=== PATIENT | female | born 1965 | race Caucasian/White ===

== ENCOUNTER 2019-09-04 19:17 | Outpatient (REF) | payer MEDICARE, SELFPAY ==
[2019-09-04 18:43] LABS: COMMENT (LAB VIEW ONLY) 105.98 mg/dL; Microalb ug/mg Crea 5.3 ug/mg Cr
== END 2019-09-04 19:37 ==
LOC: NCHCN 19:17
PROVIDERS: PCP Nurse Practitioner Family; Visit Provider Nurse Practitioner Family
DX: E11.9 Type 2 diabetes mellitus without complications (principal)
CPT/HCPCS: 82043; 82570

== ENCOUNTER 2019-10-29 16:22 | Outpatient (CLI) | payer MEDICARE, SELFPAY ==
[2019-10-29 16:56] LABS: Abs Immature Grans 0.01 k/cumm (0.0-0.09); Absolute Basophil Count 0.03 k/cumm (0.0-0.2); Absolute Eosinophil Count 0.03 k/cumm (0.0-0.7); Absolute Lymphocyte Count 1.18 k/cumm (1.2-3.4); Absolute Monocyte Count 0.78 k/cumm (0.11-0.7); Absolute Neutrophil Count 6.66 k/cumm (1.2-6.7); Basophils % 0.3; Eosinophils % 0.3; HCT 39.3 % (36.0-46.0); Immature Grans % 0.1 %; Lymphocytes % 13.6; Mean Corp. HGB Concentration 33.1 g/dL (32.0-36.0); Mean Corpuscular Hemoglobin 31.1 pg (27.0-33.0); Mean Platelet Volume 10.8 fL (8.0-11.0); Neutrophils % 76.7; Platelet Count 188 x1000/uL (130-400); RBC 4.18 m/cumm (4.00-5.20); RBC Distribution Width 12.3 % (11.7-14.6); White Blood Cell Count 8.69 k/cumm (4.4-10.8)
[2019-10-29 17:05] LABS: Anion Gap 8.3 mmol/L (3-11); BUN 11 mg/dL (7-18); CO2 26.7 mmol/L (21.0-32.0); CREATININE 0.71 mg/dL (0.55-1.02); Calcium 9.2 mg/dL (8.5-10.1); Chloride 104 mmol/L (98-107); Glucose 144 mg/dL (74-106); Potassium 4.5 mmol/L (3.5-5.1); Sodium 139 mmol/L (136-145)
== END 2019-10-29 16:42 ==
PROVIDERS: PCP Nurse Practitioner Family; Visit Provider Nurse Practitioner Family
DX: R10.9 Unspecified abdominal pain (principal); K57.32 Diverticulitis of large intestine without perforation or abscess without bleeding; N20.0 Calculus of kidney
CPT/HCPCS: 80048; 74177; 85025; J3490; Q9967

== ENCOUNTER 2019-10-29 16:43 | Outpatient (CLI) | payer MEDICARE, SELFPAY ==
[2019-10-29] MEDS: Omnipaque 350 MG/ML 100 ML BTL IJ (17:42)
[2019-10-29] MEDS: Omnipaque 350 MG/ML 50 ML BTL PO (17:43)
--- NOTE | 2019-10-29 17:45 | DI.CT_ITS ---
EXAM: CT ABDOMEN PELVIS W CLINICAL HISTORY: ABDOMINAL PAIN R10.9 TECHNIQUE: CT examination of the abdomen and pelvis was performed with a bolus infusion of 100 cc of Omnipaque 350 and ingestion of dilute barium. COMPARISON: No exams were available for comparison FINDINGS: Images obtained through the lung bases are unremarkable. Liver, spleen and pancreas appear normal. Gallbladder and bile ducts are CT normal. Adrenals and kidneys appear normal except for a tiny nono bstructing left renal calculus. No urinary tract obstruction. Abdominal aorta is of normal diameter and no major vascular abnormality is seen. Presumed prior ventral hernia surgery, no evidence of si gnificant hernia at this time. No abdominal or pelvic adenopathy. Appendix appears normal. No evidence of bowel obstruction. There is an area of wall thickening invo lving the distal descending to the distal sigmoid colon with marked pericolonic fat edema. Findings are consistent with acute diverticulitis. No abscess or perforation. Trace free fluid in the pelvis . IMPRESSION: Findings consistent with acute sigmoid diverticulitis. No evidence of perforation, obstruction or ab scess.
--- NOTE | 2019-10-29 17:56 | DI.VRAD_ITS ---
PROCEDURE INFORMATION: Exam: CT Abdomen And Pelvis With Contrast Exam date and time: 10/29/2019 4:27 PM Age: 54 years old Clinical indication: Abdominal pain; Acute; Patient HX: Lower abd pain 2 weeks, worsening over last two days TECHNIQUE: Imaging protocol: Computed tomography of the abdomen and pelvis with intravenous contrast. COMPARISON: No relevant prior studies available. FINDINGS: Lungs: Visualized lung bases are unremarkable. Liver: The liver is normal. Gallbladder and bile ducts: The gallbladder is normal. Pancreas: Small punctate calcification in the pancreatic head may represent sequela of prior pancreatitis. Pancreas is otherwise unremarkable. Spleen: The spleen is normal. Splenule. Adrenals: The adrenal glands are normal. Kidneys and ureters: The kidneys are normal. Stomach and bowel: Sigmoid diverticulosis with mural thickening and mild surrounding fat stranding. Appendix: A normal appendix is identified. Intraperitoneal space: Trace free fluid in the pelvis. Vasculature: The aorta is normal. The portal and splenic veins are patent. Lymph nodes: Unremarkable. No enlarged lymph nodes. Bladder: The bladder is normal. Reproductive: There has been a hysterectomy. Bones/joints: Unremarkable. No acute fracture. Soft tissues: Unremarkable. IMPRESSION: Mild acute sigmoid diverticulitis. No organized fluid collection or free air. Dictated and Authenticated by: Kishor Moreno MD. Ordering:JENNY Monroe MD
== END 2019-10-29 17:03 ==
PROVIDERS: PCP Nurse Practitioner Family; Visit Provider Nurse Practitioner Family
DX: R10.9 Unspecified abdominal pain (principal); K57.32 Diverticulitis of large intestine without perforation or abscess without bleeding; N20.0 Calculus of kidney
CPT/HCPCS: 74177; J3490; Q9967

== ENCOUNTER 2019-11-11 21:47 | Outpatient (REF) | payer MEDICARE, SELFPAY ==
[2019-11-11 20:13] LABS: TSH (W/Ref FT4) 2.14 uIU/mL (0.36-3.74)
== END 2019-11-11 22:07 ==
LOC: NCHCN 21:47
PROVIDERS: PCP Nurse Practitioner Family; Visit Provider Nurse Practitioner Family
DX: E03.9 Hypothyroidism, unspecified (principal)
CPT/HCPCS: 84443

== ENCOUNTER 2021-08-26 14:43 | Outpatient (REF) | payer MEDICARE, SELFPAY ==
[2021-08-26 21:09] LABS: ALT 37 U/L (14-59); AST 24 U/L (15-37); Albumin 3.9 g/dL (3.4-5.0); Alkaline Phosphatase 123 U/L (46-116); Anion Gap 7.4 mmol/L (3-11); BUN 8 mg/dL (7-18); Bilirubin, Total 0.5 mg/dL (0.2-1.0); CO2 28.6 mmol/L (21.0-32.0); CREATININE 0.8 mg/dL (0.55-1.02); Calcium 9.2 mg/dL (8.5-10.1); Chloride 108 mmol/L (98-107); Glucose 189 mg/dL (74-106); Magnesium 1.9 mg/dL (1.8-2.4); Potassium 4.5 mmol/L (3.5-5.1); Sodium 144 mmol/L (136-145); TSH (W/Ref FT4) 20.74 uIU/mL (0.36-3.74); Total Protein 7.2 g/dL (6.4-8.2)
== END 2021-08-26 14:44 | disposition home or self-care (01) ==
LOC: NCHCN 14:43
PROVIDERS: PCP Nurse Practitioner Family; Visit Provider Physician Assistant Medical
DX: R00.1 Bradycardia, unspecified (principal)
CPT/HCPCS: 80053; 83735; 84439; 84443

== ENCOUNTER 2021-09-01 02:55 | Outpatient (RCR) | payer MEDICARE, SELFPAY ==
--- NOTE | 2021-09-01 13:45 | HOLTER_ITS ---
APPROVED REPORT Conclusion This was a 48-hour Holter monitor ordered for bradycardia Rhythm throughout was sinus with an average heart rate of 77. Minimum was 54, maximum 128 A total of 4 isolated PVCs were seen. There were 6 isolated atrial premature beats There was no atrial fibrillation, no high-grade AV block, no pauses greater than 3 seconds Patient symptoms corresponded to sinus rhythm in the 80s
== END 2021-09-20 23:59 | disposition home or self-care (01) ==
LOC: RT 02:55
PROVIDERS: PCP Nurse Practitioner Family; Visit Provider Physician Assistant Medical
DX: R00.1 Bradycardia, unspecified (principal); I49.3 Ventricular premature depolarization; I49.1 Atrial premature depolarization
CPT/HCPCS: 93227; 93225; 93226

== ENCOUNTER 2021-10-28 14:56 | Outpatient (REF) | payer MEDICARE, SELFPAY ==
[2021-10-28 14:36] LABS: HCT 38.8 % (36.0-46.0); MCH 32.4 pg (27.0-33.0); MCHC 33.5 % (32.0-36.0); MCV 96.8 fL (80-95); MPV 10.8 fL (8.0-11.0); Platelet Count 197 10^3/uL (130-400); RBC 4.01 10^6/uL (3.93-5.22); RDW 11.6 % (11.7-14.6); RDW-SD 41.3 fL
[2021-10-28 15:09] LABS: Hemoglobin A1C 8.2 % (<5.7)
[2021-10-28 15:14] LABS: Calculated LDL 112 mg/dL (<100); Cholesterol 186 mg/dL (<200); HDL Cholesterol 56 mg/dL (40-60); TSH (W/Ref FT4) 10.69 uIU/mL (0.36-3.74); Triglyceride 93 mg/dL (<150)
[2021-10-28 15:32] LABS: FREE T4 1.21 ng/dL (0.76-1.46)
[2021-10-31 10:22] LABS: HIV-1/2 Ag & Ab Screen Negative (Negative)
== END 2021-10-28 14:57 | disposition home or self-care (01) ==
LOC: NCHCN 14:56
PROVIDERS: PCP Nurse Practitioner Family; Visit Provider Nurse Practitioner Family
DX: E11.9 Type 2 diabetes mellitus without complications (principal); E03.9 Hypothyroidism, unspecified; R00.1 Bradycardia, unspecified; Z11.4 Encounter for screening for human immunodeficiency virus [HIV]
CPT/HCPCS: 80061; 85027; 87389; 83036; 84439; 84443

== ENCOUNTER 2022-01-11 01:05 | Outpatient (CLI) | payer MEDICARE, SELFPAY ==
--- NOTE | 2022-01-11 11:30 | DI.MAMMO_ITS ---
Exam(s) MAMMO SCREENING EXAM: MAMMO SCREENING CLINICAL HISTORY: SCREENING, Z12.39. TECHNIQUE: Bilateral full field digital CC and MLO mammographic images were obtained with 3D tomosyn thesis and utilizing computer aided detection (CAD). COMPARISON: None. This is a baseline mammogram on this 56-year-old patient. FINDINGS: Fibroglandular tissue is predominately fatty. No CAD designations. There are no significant spiculated masses nor malignant appearing microcalcification groups. There is no significant architectural distortion nor skin thickening-retraction. IMPRESSION: No radiographic evidence of malignancy. BI-RADS Category 1 - Negative Breast Density - Category A - Almost entirely fatty Breast density Category C or D implies that the patient has dense breast tissue. Dense breast tissue can make it harder to find cancer on a mammogram. Dense breast tissue is also associated with an incr eased risk of breast cancer. This information about the result of the mammogram report was provided to the patient to raise their awareness. Use this report when you speak with the patient about their risks for breast cancer, which includes their family history. At that time, you may recommend additional screening tests (Ultrasoun d or MRI) as these tests may add significant information. A negative radiographic report should not delay biopsy if a dominant or clinically suspicious mass is present. Up to ten percent of cancers are not identified on mammography. A negative report may reinforce clinical impression. Adenosis and dense breasts may obscure an underlying neoplasm. False positive reports average 6 to 10%. Patient will receive a letter notifying them of these results.
== END 2022-01-11 01:25 ==
PROVIDERS: PCP Nurse Practitioner Family; Visit Provider Nurse Practitioner Family
DX: Z12.31 Encounter for screening mammogram for malignant neoplasm of breast (principal)
CPT/HCPCS: 77063; 77067

== ENCOUNTER 2022-02-06 13:49 | Outpatient (REF) | payer MEDICARE, SELFPAY ==
[2022-02-06 17:20] LABS: TSH (W/Ref FT4) 3.71 uIU/mL (0.36-3.74)
== END 2022-02-06 13:50 | disposition home or self-care (01) ==
LOC: NCHCN 13:49
PROVIDERS: PCP Nurse Practitioner Family; Visit Provider Nurse Practitioner Family
DX: E03.9 Hypothyroidism, unspecified (principal)
CPT/HCPCS: 84443

== ENCOUNTER 2022-09-28 14:44 | Outpatient (REF) | payer MEDICARE, SELFPAY ==
[2022-09-28 16:01] LABS: TSH (W/Ref FT4) 7.45 uIU/mL (0.36-3.74)
[2022-09-28 16:17] LABS: FREE T4 1.17 ng/dL (0.76-1.46)
== END 2022-09-28 14:45 | disposition home or self-care (01) ==
LOC: NCHCN 14:44
PROVIDERS: PCP Nurse Practitioner Family; Visit Provider Nurse Practitioner Family
DX: E03.9 Hypothyroidism, unspecified (principal)
CPT/HCPCS: 84439; 84443

== ENCOUNTER 2022-12-28 12:38 | Outpatient (REF) | payer MEDICARE, SELFPAY ==
[2022-12-28 16:25] LABS: HCT 39.4 % (36.0-46.0); HGB 13.5 g/dL (11.2-15.7); MCH 31.8 pg (27.0-33.0); MCHC 34.3 % (32.0-36.0); MCV 93 fL (80-95); MPV 10.7 fL (8.0-11.0); Platelet Count 181 10^3/uL (130-400); RBC 4.25 10^6/uL (3.93-5.22); RDW 11.9 % (11.7-14.6); RDW-SD 40.8 fL
[2022-12-28 16:37] LABS: ALT 29 U/L (14-59); AST 17 U/L (15-37); Albumin 3.5 g/dL (3.4-5.0); Alkaline Phosphatase 144 U/L (46-116); Anion Gap 7.8 mmol/L (3-11); BUN 13 mg/dL (7-18); Bilirubin, Total 0.4 mg/dL (0.2-1.0); CO2 27.2 mmol/L (21.0-32.0); CREATININE 0.8 mg/dL (0.55-1.02); Chloride 103 mmol/L (98-107); Estimated GFR 86.42 (mL/min/1.73m2); Glucose 333 mg/dL (74-106); Potassium 3.9 mmol/L (3.5-5.1); Sodium 138 mmol/L (136-145); TSH (W/Ref FT4) 7.38 uIU/mL (0.36-3.74); Total Protein 7.3 g/dL (6.4-8.2)
[2022-12-28 17:05] LABS: FREE T4 0.95 ng/dL (0.76-1.46)
== END 2022-12-28 12:39 | disposition home or self-care (01) ==
LOC: NCHCN 12:38
PROVIDERS: PCP Nurse Practitioner Family; Visit Provider Nurse Practitioner Family
DX: E11.9 Type 2 diabetes mellitus without complications (principal); E03.9 Hypothyroidism, unspecified
CPT/HCPCS: 80053; 85027; 84439; 84443

== ENCOUNTER 2023-04-05 12:05 | Outpatient (REF) | payer MEDICARE, SELFPAY ==
[2023-04-05 19:30] LABS: COMMENT (LAB VIEW ONLY) 45.24 mg/dL
== END 2023-04-05 12:06 | disposition home or self-care (01) ==
LOC: NCHCN 12:05
PROVIDERS: PCP Nurse Practitioner Family; Visit Provider Nurse Practitioner Family
DX: E11.9 Type 2 diabetes mellitus without complications (principal)
CPT/HCPCS: 82043; 82570

== ENCOUNTER 2023-05-17 19:09 | Outpatient (CLI) | payer MEDICARE, SELFPAY ==
[2023-05-17 16:09] LABS: TSH (W/Ref FT4) 0.29 uIU/mL (0.36-3.74)
[2023-05-17 16:27] LABS: FREE T4 1.61 ng/dL (0.76-1.46)
== END 2023-05-17 19:10 | disposition home or self-care (01) ==
LOC: LBO 19:09
PROVIDERS: PCP Nurse Practitioner Family; Visit Provider Family Medicine
DX: E11.9 Type 2 diabetes mellitus without complications (principal)
CPT/HCPCS: 36415; 84439; 84443

== ENCOUNTER 2023-09-07 19:27 | Outpatient (REF) | payer MEDICARE, SELFPAY ==
[2023-09-07 19:30] LABS: Hemoglobin A1C 9.8 % (<5.7)
[2023-09-07 19:32] LABS: ALT 29 U/L (14-59); AST 20 U/L (15-37); Albumin 3.5 g/dL (3.4-5.0); Alkaline Phosphatase 134 U/L (46-116); BUN 9 mg/dL (7-18); Bilirubin, Total 0.7 mg/dL (0.2-1.0); CREATININE 0.8 mg/dL (0.55-1.02); Calcium 9.4 mg/dL (8.5-10.1); Calculated LDL 100 mg/dL (<100); Chloride 104 mmol/L (98-107); Cholesterol 183 mg/dL (<200); Estimated GFR 85.89 (mL/min/1.73m2); Glucose 261 mg/dL (74-106); HDL Cholesterol 59 mg/dL (40-60); Magnesium 1.7 mg/dL (1.8-2.4); Potassium 3.9 mmol/L (3.5-5.1); Sodium 137 mmol/L (136-145); TSH 0.09 uIU/mL (0.36-3.74); Total Protein 7.2 g/dL (6.4-8.2); Triglyceride 121 mg/dL (<150)
== END 2023-09-07 19:28 | disposition home or self-care (01) ==
LOC: NCHCN 19:27
PROVIDERS: PCP Nurse Practitioner Family; Visit Provider Nurse Practitioner Family
DX: E03.9 Hypothyroidism, unspecified (principal); E11.9 Type 2 diabetes mellitus without complications; R25.2 Cramp and spasm
CPT/HCPCS: 80053; 80061; 83036; 83735; 84443

== ENCOUNTER 2024-03-07 14:15 | Outpatient (REF) | payer MEDICARE, SELFPAY ==
[2024-03-07 18:44] LABS: HCT 40.7 % (36.0-46.0); HGB 14.2 g/dL (11.2-15.7); MCH 32.2 pg (27.0-33.0); MCHC 34.9 % (32.0-36.0); MCV 92 fL (80-95); MPV 11.2 fL (8.0-11.0); Platelet Count 219 10^3/uL (130-400); RBC 4.41 10^6/uL (3.93-5.22); RDW 11.9 % (11.7-14.6); WBC 4.61 10^3/uL (4.4-10.8)
[2024-03-07 19:07] LABS: ALT 30 U/L (14-59); AST 22 U/L (15-37); Albumin 3.5 g/dL (3.4-5.0); Alkaline Phosphatase 142 U/L (46-116); Anion Gap 10.7 mmol/L (3-11); BUN 9 mg/dL (7-18); Bilirubin, Total 0.7 mg/dL (0.2-1.0); CO2 26.3 mmol/L (21.0-32.0); CREATININE 0.8 mg/dL (0.55-1.02); Chloride 106 mmol/L (98-107); Estimated GFR 85.35 (mL/min/1.73m2); Glucose 217 mg/dL (74-106); Hemoglobin A1C 10.4 % (<5.7); Potassium 4.4 mmol/L (3.5-5.1); Sodium 143 mmol/L (136-145); TSH (W/Ref FT4) 0.07 uIU/mL (0.36-3.74); Total Protein 7.1 g/dL (6.4-8.2)
[2024-03-07 19:21] LABS: Vitamin D 25 Total 17.5 ng/mL (30-100)
[2024-03-07 19:34] LABS: FREE T4 1.68 ng/dL (0.76-1.46)
== END 2024-03-07 14:16 | disposition home or self-care (01) ==
LOC: NCHCN 14:15
PROVIDERS: Visit Provider Nurse Practitioner Family
DX: G47.419 Narcolepsy without cataplexy (principal); E03.9 Hypothyroidism, unspecified; E55.9 Vitamin D deficiency, unspecified; E11.9 Type 2 diabetes mellitus without complications
CPT/HCPCS: 80053; 82306; 85027; 83036; 84439; 84443

== ENCOUNTER 2024-10-10 13:40 | Outpatient (REF) | payer MEDICARE, SELFPAY ==
--- OUTSIDE RECORDS SUMMARY | 2024-10-10 13:46 | XMS_ITS | Encounter Summary ---
Author Organization [facility] Address [address] [place] [address] Care Team Providers Care Stock Clerk Self Service Store Name Role Phone Miranda Delcid Primary Care Provider [phone] Encounter Details Date Type Department Care Team (Late st Contact Info) Description 09/01/2016 Results Only [facility] [phone] Beatriz Meeks, DO [address] [place] [address] Social History Tobacco Use Types Packs/Day Years Used Date Smoking Tobacco: Never Assessed Comments Unknown Sex and Gender Information Value Date Recorded Sex Assigned at Not on file Legal Sex Female 18:06 EST Gender Identity Not on file Sexual Orientation Not on file documented as of this encounter Plan of Treatment Not on file documented as of this encounter Procedures Procedure Name Priority Date/Time Associated Diagnosis Comments SURGICAL PATHOLOGY Routine 09/01/2016 12 :02 EST documented in this encounter Results * SURGICAL PATHOLOGY (09/01/2016 12:02 EST) Pathology Report: SURGICAL PATHOLOGY REPORT Reports generated via electronic interface contain original data; however they are lacking the format of the original report. Caution should be taken when reading/interpretin g unformatted reports. Name: ? GINO YANG ? Accession #: ? [id number] ? : ? 1965 (Age: 51) ??F ? Collect Date: ? 09/01/2016 ? Location: ? [facility] ? Receive Date: ? 09/04/2016 ? Provider: BEATRIZ MEEKS DO Copy to: ? Final Pathologic Diagnosis: A. SMALL BOWEL, DUODENUM, BIOPSY: - ??Peptic duodenitis with reactive epithelial change. - ??Negative for dysplasia. B. STOMACH, ANTRUM, BIOPSY: - ??Transitional and oxyntic mucosa with mild reactive gastropathy. - ??Negative for Helicobacter pylori on H&E. C. GASTROESOPHAGEAL JUNCTION, BIOPSY: - ??Ulcerated squamous mucosa with severe reflux esophagitis and up to 12 eosinophils per high power field. - ??Bizarre stromal cells involving granulation tissue. SEE COMMENT. - ??Cardia type mucosa with foveolar hyperplasia; negative for intestinal metaplasia or dysplasia. - ??See comment. ?? Comment: Nature of bizarre cells was further evaluated by immunostaining to exclude a possibility of malignancy. These cells were evaluated with S-100 protein DAB (4C4.9, [place]), LCA (PD7/26+2B11, [employer]), Keratin AE1-AE3 (AE1-AE3, [employer]), CD138 (M115, [employer]), CD30 (Josafat-H2, [place]), DANIEL (GP1.4, [employer]) (C2): Negative for carcinoma and negative for melanoma. True nature of reactive-appearing bizarre cells is difficult to delineate but most compatible with plasma cells. Highly bizarre cells have been occasionally described in context of inflammatory conditions or polyps in GI tract. Patient does not have history of radiation, per discussion with Dr. Laird's office at 11:00 am on 09/11/2016. Considering direct granulation tissue milieu and immunostaining profile, bizarre cells are considered reactive/ reparative inflammatory and stromal cells, unless endoscopically/ clinically another suspicion remains. Please correlate. ? Cells are also negative for viral markers CMV (DDG9/CCH2, [place]), Herpes I (polyclonal, [employer]) and SV40 (Qjs135, [employer] ([employer])) (C2): negative. ?? NOTE: ??One or more of the reagents used in immunoperoxidase testing in this case may not have been cleared or approved by the U.S. Food and Drug Administration (FDA). ??The FDA has determined that such clearance or approval is not necessary. ??These tests are used for clinical purposes. ??They should not be regarded as investigational or for research. ??These reagents' performance characteristics have been determined by [facility]. ??The positive and negative controls worked appropriately. This laboratory is certified under the Clinical Laboratory Improvement Amendments of 1988 (CLIA-88) as qualified to perform high complexity clinical laboratory testing. ?? Dr. Tank Howe 09/05/2016 12:13 PM Document reviewed and electronically signed by: SHAYY CAMPBELL MD Report ??Date: 09/11/2016 12:21 By the signature above, the attending physician certifies that he/she has personally conducted a gross and/or microscopic examination of the described specimens and rendered or confirmed the above diagnosis. Specimen(s) Received: A. ??Duodenum bx B. ??Gastric antrum bx C. ??GE junction bx Clinical History: GERD/screening; clinical diagnosis code: ??K21.9, Z12.11 Gross Description: A. ?Received in formalin labelled with proper patient identification (initials M, S) and 1. duodenum bx is a single yellow-brown granular tissue fragment (0.4 x 0.3 x 0.2 cm). Submitted intact in A1. B. ?Received in formalin labelled with proper patient identification (initials M, S) and 2. gastric antrum bx are three nava-yellow mottled tissues (0.2 x 0.2 x less than 0.1 cm, 0.3 x 0.2 x 0.1 cm and 0.4 x 0.3 x 0.3 cm). Entirely submitted in B1. C. ?Received in formalin labelled with proper patient identification (initials M, S) and 3. GE junction bx are eight nava-yellow to yellow-brown tissues (0.2 x 0.1 x 0.1 cm to 0.6 x 0.5 x 0.1 cm). Entirely submitted in C1-C3. Yanet Gretchen 09/04/2016 2:52 PM End of Report [facility] 09/01/2016 12:0 2 EST 09/04/2016 12:02 EST us Beatriz Meeks DO PATHOLOGY ORDERABLES Final Res ult [facility] [address] [place] [address] documented in this encounter Visit Diagnoses Not on filedocumented in this encounter Care Teams Stock Clerk Self Service Store Relationship Specialty Start Date End Date Miranda Delcid PA [address] [place] [id number] PCP - General 04/01/15 documented as of this encounter
--- OUTSIDE RECORDS SUMMARY | 2024-10-10 13:46 | XMS_ITS | Encounter Summary ---
Author Organization [facility] Address [address] [place] [address] Care Team Providers Care Grain Elevator Man Name Role Phone Miranda Delcid Primary Care Provider [phone] Encounter Details Date Type Department Care Team (Latest Contact Info) Description 09/01/2016 13:14 EST - 09/01/2016 23:59 EST Hospital Encounter [address] [address] Unknown, Provider, MD Discharge Disposition: Home or Self Care Social History Tobacco Use Types Packs/Day Years Used Date Smoking Tobacco: Never Assessed Comments Unknown Sex and Gender Information Value Date Recorded Sex Assigned at Not on file Legal Sex Female 18:06 EST Gender Identity Not on file Sexual Orientation Not on file documented as of this encounter Discharge Disposition Disposition Code Departure Means Destination Home or Self Prison documented in this encounter Plan of Treatment Not on file documented as of this encounter Visit Diagnoses Not on filedocumented in this encounter Care Teams Grain Elevator Man Relationship Specialty Start Date End Date Miranda Delcid PA [address] [place] [id number] PCP - General 04/01/15 documented as of this encounter
--- OUTSIDE RECORDS SUMMARY | 2024-10-10 13:46 | XMS_ITS | Encounter Summary ---
Author Organization [facility] Address [address] [place] [address] Care Team Providers Care Pipe Threading Machine Operator Name Role Phone Unavailable Primary Care Provider Unavailabl e Encounter Details Date Type Department Care Team (Late st Contact Info) Description 03/29/2015 Results Only [facility]- [facility] [phone] Sage Soto MD [address] [place] [address] [address] [place], [place] [id number] Social History Tobacco Use Types Packs/Day Years [...] Date/Time Associated Diagnosis Comments SURGICAL PATHOLOGY Routine 03/29/2015 8:36 EDT documented in this encounter Results * SURGICAL PATHOLOGY (03/29/2015 8:36 EDT) Pathology Report: SURGICAL PATHOLOGY REPORT Reports generated via electronic interface contain original data; however they are lacking the format of the original report. Caution should be taken when reading/interpret ing unformatted reports. Name: ? GINO YANG ? Accession #: ? [id number] ? : ? 1965 (Age: 50) ??F ? Collect Date: ? 03/29/2015 ? Location: ? [facility] ? Receive Date: ? 03/30/2015 ? Provider: SAGE SOTO MD Copy to: COLLETTE JOSE MD ? Final Pathologic Diagnosis: GASTROESOPHAGEAL JUNCTION, BIOPSY: - ??Squamocolumnar junctional mucosa with histologic features of active reflux esophagitis. - ?? Negative for intestinal metaplasia; Negative for dysplasia. ?? Document reviewed and electronically signed by: SOREN WOLFE MD Report ??Date: 04/01/2015 10:50 By the signature above, the attending physician certifies that he/she has personally conducted a gross and/or microscopic examination of the described specimens and rendered or confirmed the above diagnosis. Specimen(s) Received: GE junction Clinical History: Reflux Gross Description: ? Received in formalin labelled with proper patient identification (initials M, S) and GE junction are two pink-nava tissues (0.2 x 0.2 x 0.2 cm and 0.4 x 0.2 x 0.2 cm). Entirely submitted in 1. Sandy Ponce 03/30/2015 01:19 PM End of Report [facility] 03/29/2015 8:36 EDT 03/30/2015 8:36 EDT us Sage Soto MD PATHOLOGY ORDERABLES Fin al Result [facility] [address] [place] [address] documented in this encounter Visit Diagnoses Not on filedocumented in this encounter
--- OUTSIDE RECORDS SUMMARY | 2024-10-10 13:46 | XMS_ITS | Referral Summary ---
Author Organization [facility] Address [address] [place] [address] Care Team Providers Care Energy Administrator Name Role Phone Miranda Delcid Primary Care Provider [phone] Social History Tobacco Use Types Packs/Day Years Used Date Smoking Tobacco: Never Assessed Comments Unknown Sex and Gender Information Value Date Recorded Sex Assigned at Not on file Legal Sex Female 18:06 EST Gender Identity Not on file Sexual Orientation Not on file Plan of Treatment Not on file Care Teams Energy Administrator Relationship Specialty Start Date End Date Miranda Delcid PA [address] [place] [id number] PCP - General 04/01/15
--- OUTSIDE RECORDS SUMMARY | 2024-10-10 13:46 | XMS_ITS | Data Portability ---
Author Organization ID - [facility] Address [address] [place] [address] Care Team Providers Care Hockey Scout Name Role Phone [facility] Sleep Medicine Assessment No assessment recorded. Plan of Treatment Reminders Order Date Submit Date Provider Last Modified By Organization Details Last Modified Time Details Appointments Follow Up 30 2023 10:30A M ORIANA GARZA Not available Not available Not available Follow Up 30 2024 10:30A M ORIANA GARZA Not available Not available Not available Annual Wellness Exam 40 2024 11:00A M ORIANA GARZA Not available Not available Not available Lab magnesium , serum or plasma [address] [facility] (Registration ), [address] [place] [address] [place], [address], 03/19/2024 17:13:32 HbA1c (hemoglob in A1c), blood [address] [facility] (Registration ), [address] [place] [address] [place], [address], 03/19/2024 17:13:32 CMP, serum or plasma 2022 023 [facility] (Registration ), [address] [place] [address] [place], [address], 10/26/2023 09:54:32 lipid panel, serum 2022 023 [facility] (Registration ), [address] [place] [address] Dr, [place], [address], 10/26/2023 09:54:32 TSH, serum or plasma [address] [facility] (Registration ), [address] [place] [address] [place], [address], 03/19/2024 17:13:32 rapid strep group A, throat 2023 024 [email or web address] [facility], [address] [place] [address], [address], [place], [address], 01/23/2024 17:57:50 influenza virus A + B + SARS-CoV- 2 (COVID19) Ag panel, rapid IA, upper respirato ry specimen 2023 024 [email or web address] [facility], [address] [place] [address], [address], [place], [address], 01/23/2024 17:57:51 vitamin D, 25-hydrox y, total, serum - 1 tiger, 1 LAV obtained without issue from (R) 2023 024 [facility] (Registration ), [address] [place] [address] [place], [address], 03/07/2024 19:24:28 HbA1c (hemoglob in A1c), blood - 1 tiger, 1 LAV obtained without issue from (R) AC [address] [facility] (Registration ), [address] [place] [address] [place], [address], 03/14/2024 15:49:48 CMP, serum or plasma - 1 tiger, 1 LAV obtained without issue from (R) AC 2023 024 [facility] (Registration ), [address] [place] [address] [place], [address], 03/07/2024 19:12:32 CBC - 1 tiger, 1 LAV obtained without issue from (R) 2023 [facility] (Registration ), [address] [place] [address] , [place], [address], 03/07/2024 18:51:28 TSH, serum, reflex free T4 - 1 tiger, 1 LAV obtained without issue from (R) [address] [facility] (Registration ), [address] [place] [address] [place], [address], 03/14/2024 15:49:49 Referral None recorded. Procedures None recorded. Surgeries None recorded. Imaging XR, knee, 3 view - Bilateral knee pain, please perform xray to left and right side. 2023 [facility], [address] , [place], [address], 05/19/2024 10:27:32 Medication Orders amoxicill in 500 mg capsule [address] [facility] [address] [facility], [address] [place] [address], [address], 03/07/2024 10:06:16 Victoza 2-Kevin 0.6 mg/0.1 mL (18 mg/3 mL) subcutane ous pen injector 2023 [facility], [address] [place] [address], [address], 09/05/2024 11:58:47 levothyro xine 175 mcg tablet 2023 [facility], [address] [place] [address], [address], 03/12/2024 15:49:02 Patient TargetsNo targets recorded. Patient Instructions Encounter Date Encounter Id Patient Instructions Last Modified By Organization Details Last Modified Time 09/07/2023 [id number] Nice to meet you today! You are now established on my panel Follow up in 3 months, sooner if concerns labs for management of hypothyroidism and type II diabetes today We will call you to discuss plan based on labs [email or web address] Not available 09/07/2023 14:38:42 Reason for Referral None Reported. Results Created Date Observation Date Name Description Value Unit Range Abnormal Flag Note LastModifiedBy Organization Detail LastModifiedTime 09/07/2009/07/2023 TSH, serum or plasm a TSH, serum or plasma 0.09 micro intl_ units /mL 0.36-3 .74 low Not Available Not Available 05/23/2024 01:40:40 09/07/2009/07/2023 magne sium, blood magnesium, qn, serum or plasma 1.7 mg/dL 1.8-2. 4 low Not Available Not Available 05/23/2024 01:40:40 09/07/2009/07/2023 lipid panel , blood cholesterol, total, serum 183 mg/dL <200 Not Available Not Available 05/23/2024 01:40:40 09/07/2009/07/2023 lipid panel , blood HDL 59 mg/dL 40-60 Not Available Not Availa ble 05/23/2024 01:40:40 09/07/2009/07/2023 lipid panel , blood LDL 100 mg/dL <100 Not Available Not Availa ble 05/23/2024 01:40:40 09/07/2009/07/2023 lipid panel , blood triglyceride , 12H fasting, qn, serum or plasma 121 mg/dL <150 Not Available Not Available 11/2023 01:40:40 09/07/2009/07/2023 HbA1c (hemo globi n A1c), blood HbA1C (hemoglobin A1C), blood 9.8 % <5.7 high Not Available Not Available 05/23/2024 01:40:39 09/07/2009/07/2023 gluco se, QN [mass /volu me], blood glucose ser 261 mg/dL 74-106 high Not Available [facility] [address], [place], [address], 05/23/2024 01:40:39 09/07/2009/07/2023 CMP, serum or plasm a albumin, serum or plasma 3.5 g/dL 3.4-5. 0 normal Not Available Not Available 05/23/2024 01:40:37 09/07/2009/07/2023 CMP, serum or plasm a aniongap 7.0 mmol/ L 3-11 normal Not Available Not Available 05/23/20 01:40:37 09/07/2009/07/2023 CMP, serum or plasm a bilirubin, total, serum or plasma 0.7 mg/dL 0.2-1. 0 normal Not Available Not Available 05/23/2024 01:40:37 09/07/2009/07/2023 CMP, serum or plasm a BUN (blood urea nitrogen), serum or plasma 9 mg/dL 7-18 normal Not Available Not Available 11/2023 01:40:37 09/07/2009/07/2023 CMP, serum or plasm a calcium, qn, serum or plasma 9.4 mg/dL 8.5-10 .1 normal Not Available Not Available 05/23/2024 01:40:37 09/07/2009/07/2023 CMP, serum or plasm a chloride, serum or plasma 104 mmol/ L 98-107 normal Not Available Not Available 05/23/20 01:40:37 09/07/2009/07/2023 CMP, serum or plasm a CO2, (carbon dioxide), total, serum or plasma 26.0 mmol/ L 21.0-3 2.0 normal Not Available Not Available 05/23/2024 01:40:37 09/07/2009/07/2023 CMP, serum or plasm a creatinine, serum or plasma 0.8 mg/dL 0.55-1 .02 normal Not Available Not Available 05/23/2024 01:40:37 09/07/2009/07/2023 CMP, serum or plasm a eGFR 85.89 (?) mL/mi n/1.7 3m2 mL/min /1.73m 2 Not Available Not Available 05/23/2024 01:40:37 09/07/20 23 09/07/2023 CMP, serum or plasm a potassium, serum or plasma 3.9 mmol/ L 3.5-5. 1 normal Not Available Not Available 05/23/2024 01:40:37 09/07/2009/07/2023 CMP, serum or plasm a protein, total, serum 7.2 g/dL 6.4-8. 2 normal Not Available Not Available 05/23/2024 01:40:37 09/07/2009/07/2023 CMP, serum or plasm a AST/SGOT (aspartate aminotransfe rase), serum or plasma 20 units /L 15-37 normal Not Available Not Available 05/23/20 01:40:37 09/07/2009/07/2023 CMP, serum or plasm a ALT (alanine aminotransfe rase), serum or plasma 29 units /L 14-59 normal Not Available Not Available 05/23/20 01:40:37 09/07/2009/07/2023 CMP, serum or plasm a sodium, serum or plasma 137 mmol/ L 136-14 5 normal Not Available Not Available 05/23/2024 01:40:37 01/23/20 24 01/23/2024 influ ricky virus A + B + SARS- CoV-2 (COVI D19) Ag panel , rapid IA, upper respi rator y speci men Influenza A negati ve Not Available [address] [place] [address], [address], 01/23/2024 17:43:30 01/23/20 24 01/23/2024 influ ricky virus A + B + SARS- CoV-2 (COVI D19) Ag panel , rapid IA, upper respi rator y speci men Influenza B negati ve Not Available [address] [place] [address], [address], 01/23/2024 17:43:30 01/23/20 24 01/23/2024 influ ricky virus A + B + SARS- CoV-2 (COVI D19) Ag panel , rapid IA, upper respi rator y speci men SARS-COV-2 negati ve Not Available [address] [place] [address], [address], 01/23/2024 17:43:30 01/23/20 24 01/23/2024 rapid strep group A, throa t Strep positi ve Not Available [address], [address], 01/23/2024 17:43:11 03/07/20 24 03/07/2024 COMPL ETE BLOOD COUNT NO DIFF WBC 4.61 10_3/ uL 4.4-10 .8 normal Not Available [address] [place], [id number] 03/07/2024 18:51:28 03/07/20 24 03/07/2024 COMPL ETE BLOOD COUNT NO DIFF RBC 4.41 10_6/ uL 3.93-5 .22 normal Not Available [address] [place], [id number] 03/07/2024 18:51:28 03/07/20 24 03/07/2024 COMPL ETE BLOOD COUNT NO DIFF HGB 14.2 g/dL 11.2-1 5.7 normal Not Available [address] [place], [address] 03/07/2024 18:51:28 03/07/20 24 03/07/2024 COMPL ETE BLOOD COUNT NO DIFF HCT 40.7 % 36.0-4 6.0 normal Not Available [address] [place], [address] 03/07/2024 18:51:28 03/07/20 24 03/07/2024 COMPL ETE BLOOD COUNT NO DIFF MCV 92 fL 80-95 normal Not Available Anisa [address] [place], [address] 03/07/2024 18:51:28 03/07/20 24 03/07/2024 COMPL ETE BLOOD COUNT NO DIFF MCH 32.2 pg 27.0-3 3.0 normal Not Available [address] [place], [address] 03/07/2024 18:51:28 03/07/20 24 03/07/2024 COMPL ETE BLOOD COUNT NO DIFF MCHC 34.9 % 32.0-3 6.0 normal Not Available [address] [place], [address] 03/07/2024 18:51:28 03/07/20 24 03/07/2024 COMPL ETE BLOOD COUNT NO DIFF RDW 11.9 % 11.7-1 4.6 normal Not Available [address] [place], [address] 03/07/2024 18:51:28 03/07/20 24 03/07/2024 COMPL ETE BLOOD COUNT NO DIFF platelet count 219 10_3/ uL 130-40 0 normal Not Available [address] [place], [address] 03/07/2024 18:51:28 03/07/20 24 03/07/2024 COMPL ETE BLOOD COUNT NO DIFF MPV 11.2 fL 8.0-11 .0 high Not Available [address] [place], [id number] 03/07/2024 18:51:28 03/07/20 24 03/07/2024 HEMOG LOBIN A1C hemoglobin A1C 10.4 % <5.7 high Refer ence Range s <5.7 Celeste l 5.7-6 .4% Predi abete s 6.5% or great er Diagn ostic for diabe tomasz (if confi rmed) Refer ences : 1. Ameri can Diabe tomasz Assoc iatio n. Clas sific ation and Diagn osis of Diabe tomasz. Diabe tomasz [facility] 2018; 2(Sup pleme nt 1):S1 3-s28 . Not Available [facility] (Registration ) [address] [place] [address] [place], [id number], 03/07/2024 19:12:26 03/07/20 24 03/07/2024 COMPR EHENS MERRILL METAB OLIC PANEL calcium 9.0 mg/dL 8.5-10 .1 normal Not Available [address] [place], [address] 03/07/2024 19:12:32 03/07/20 24 03/07/2024 COMPR EHENS MERRILL METAB OLIC PANEL glucose 217 mg/dL 74-106 high Not Available Anisa young [address] [place], [address] 03/07/2024 19:12:32 03/07/20 24 03/07/2024 COMPR EHENS MERRILL METAB OLIC PANEL BUN 9 mg/dL 7-18 normal Not Available Anisa young [address] [place], [address] 03/07/2024 19:12:32 03/07/20 24 03/07/2024 COMPR EHENS MERRILL METAB OLIC PANEL creatinine 0.8 mg/dL 0.55-1 .02 normal Not Available [address] [place], [address] 03/07/2024 19:12:32 03/07/20 24 03/07/2024 COMPR EHENS MERRILL METAB OLIC PANEL estimated GFR 85.35 mL/min /1.73m 2 The eGFR is calcu lated from a serum creat inine using the CKD-E PI 2020 equat ion. Other varia bles requi red for the equat ion are gende r and age; this equat ion does not inclu de a race coeff icien t. This equat ion has simil ar overa ll perfo rmanc e to previ ous equat ions excep t value s may diffe r, in parti cular , in patie nts with highe r value s of eGFR and young er-ag ed adult s. Not Available [address] [place], [address] 03/07/2024 19:12:32 03/07/20 24 03/07/2024 COMPR EHENS MERRILL METAB OLIC PANEL total protein 7.1 g/dL 6.4-8. 2 normal Not Available [address] [place], [address] 03/07/2024 19:12:32 03/07/20 24 03/07/2024 COMPR EHENS MERRILL METAB OLIC PANEL albumin 3.5 g/dL 3.4-5. 0 normal Not Available [address] [place], [address] 03/07/2024 19:12:32 03/07/20 24 03/07/2024 COMPR EHENS MERRILL METAB OLIC PANEL bilirubin, total 0.7 mg/dL 0.2-1. 0 normal Not Available [address] [place], [address] 03/07/2024 19:12:32 03/07/20 24 03/07/2024 COMPR EHENS MERRILL METAB OLIC PANEL alk phos 142 U/L 46-116 high Not Available [address] [place], [address] 03/07/2024 19:12:32 03/07/20 24 03/07/2024 COMPR EHENS MERRILL METAB OLIC PANEL sodium 143 mmol/ L 136-14 5 normal Not Available [address] [place], [address] 03/07/2024 19:12:32 03/07/20 24 03/07/2024 COMPR EHENS MERRILL METAB OLIC PANEL potassium 4.4 mmol/ L 3.5-5. 1 normal Not Available [address] [place], [address] 03/07/2024 19:12:32 03/07/20 24 03/07/2024 COMPR EHENS MERRILL METAB OLIC PANEL chloride 106 mmol/ L 98-107 normal Not Available [address] [place], [address] 03/07/2024 19:12:32 03/07/20 24 03/07/2024 COMPR EHENS MERRILL METAB OLIC PANEL CO2 26.3 mmol/ L 21.0-3 2.0 normal Not Available [address] [place], [address] 03/07/2024 19:12:32 03/07/20 24 03/07/2024 COMPR EHENS MERRILL METAB OLIC PANEL anion gap 10.7 mmol/ L 3-11 normal Not Available [address] [place], [address] 03/07/2024 19:12:32 03/07/20 24 03/07/2024 COMPR EHENS MERRILL METAB OLIC PANEL AST 22 U/L 15-37 normal Not Available Anisa young [address] [place], [address] 03/07/2024 19:12:32 03/07/20 24 03/07/2024 COMPR EHENS MERRILL METAB OLIC PANEL ALT 30 U/L 14-59 normal Not Available Anisa young [address] [place], [address] 03/07/2024 19:12:32 03/07/20 24 03/07/2024 TSH (W/RE F FT4) TSH (w/ref FT4) 0.07 uIU/m L 0.36-3 .74 low Not Available [address] [place], [id number] 03/07/2024 19:12:33 03/07/20 24 03/07/2024 VITAM IN D 25 TOTAL vitamin D 25 total 17.5 NG/mL 30-100 low Refer ence Guide lines : Defic ient: <10 ng/ml Insuf ficie nt: 10-30 ng/ml Suffi cient : 30-10 0 ng/ml Toxic : >100 ng/ml Not Available [address] [place], [address] 03/07/2024 19:24:28 03/07/20 24 03/07/2024 TSH (W/RE F FT4) TSH (w/ref FT4) 0.07 uIU/m L 0.36-3 .74 low Not Available [address] [place], [address] 03/07/2024 19:43:39 03/07/20 24 03/07/2024 FREE T4 free T4 1.68 NG/dL 0.76-1 .46 high Not Available [address] [place], [id number] 03/07/2024 19:43:39 10/10/20 24 10/10/2024 hemog lobin A1C, finge rstic k hemoglobin A1C 9.4 % <5.7 Not Available [facility] [address], [facility] [place], [address], 10/10/2024 10:43:13 05/19/20 24 05/19/2024 XR, knee, 3 view ABNORM AL FINDIN G PROCED URE INFORM ATION: Exam: XR Right Knee Exam date and time: 8:39 AM Age: 59 years old Clinic al indica tion: Pain of bilate ral knee joints , injury TECHNI QUE: Imagin g protoc ol: Radiol ogic exam of the right knee. Views: 4 or more views. COMPAR CAITLYN: No releva nt prior studie s availa ble. FINDIN GS: Bones/ joints : Severe tricom partme nt osteoa rthrit is. No signif icant knee joint effusi on. Soft tissue s: Normal . IMPRES ROSA: Severe tricom partme nt osteoa rthrit is. ====== ====== ====== ====== = PROCED URE INFORM ATION: Exam: XR Left Knee Exam date and time: 8:39 AM Age: 59 years old Clinic al indica tion: Pain of bilate ral knee joints , injury TECHNI QUE: Imagin g protoc ol: Radiol ogic exam of the left knee. Views: 4 or more views. COMPAR CAITLYN: No releva nt prior studie s availa ble. FINDIN GS: Bones/ joints : Mild-t o-mode rate tricom partme nt osteoa rthrit is. No signif icant knee joint effusi on. Soft tissue s: Normal . IMPRES ROSA: Mild-t o-mode rate tricom partme nt osteoa rthrit is. Report signed by: Gulshan Redding i On 2023 09:07: 11 [facility] [address], [place], [address], 05/19/2024 13:15:58 05/19/20 24 05/19/2024 XR, knee, 3 view No observ ation record ed. [facility] [address] [place], [place], [address], 06/07/2024 15:47:40 09/15/20 24 08/26/2021 imagi ng/di agnos tic resul t No observ ation record ed. Not Available 07/06 21:31:50 07/06/20 24 09/08/2021 imagi ng/di agnos tic resul t No observ ation record ed. Not Available 07/06 21:32:18 07/06/20 24 10/29/2019 imagi ng/di agnos tic resul t No observ ation record ed. Not Available 07/06 21:33:05 07/06/20 24 10/30/2019 CT, abdom en No observ ation record ed. Not Available 07/06 21:33:18 07/06/20 24 01/11/2022 MAMMO , rinku garcía No observ ation record ed. Not Available 07/06 21:33:20 08/07/20 24 08/07/2024 xr knee 1V or 2V lt* [facility] RAD[facility]OL [facility] Narciso Guerrero t [id number] RADIOL OGY TRANSC RIPTIO N REPORT _ Patien t Name: SKY ACOSTA MRN: Sex: : Age: [id number] Accoun t: Access ion: Admit: StayTy pe: [id number] 2023 Katelyn Chaidez d: Order ID: Submit marci: Orderamy ng Provid er: 2023 07:36 [id number] LB LEXII DUEÑAS marci: Techno logist : Result ed: 2023 07:37 LB 2023 08:11 _ EXAMIN ATION: XR KNEE 1V OR 2V LT CLINIC AL HISTOR Y: REASON : BILATE RAL PRIMAR Y OSTEOA RTHRIT IS OF KNEE ADD'L INFO: 2 VIEWS: WB AP AND TUNNEL TECHNI QUE: AP and tunnel views LEFT knee COMPAR CAITLYN: April 18, 2019 FINDIN GS: No acute osseou s findin g. Minima l degene rative findin gs are noted. IMPRES ROSA: Early osteoa rthrit is. Thank you for clark santiago us partic ipate in the care of this patien t. If you are a health care provid er and have any questi ons regard ing this report , please contac t the number below. For patien ts who have questi ons please contac t the health care profes sional that reques marci your imagin g first. Electr onical ly signed by: Anthony Encinas MD Radiol alexandra Schilling n ([phone]), at 2023 8:11 AM INTERFACE [facility] (Lab) [address] [place] [address], [address], 08/07/2024 08:18:31 08/07/20 24 08/07/2024 xr knee 1V or 2V RT* [facility] RADIOL OGY Narciso Guerrero t [id number] RADIOL OGY TRANSC PUJATIO N REPORT _ Patien t Name: SKY ACOSTA MRN: Sex: : Age: [id number] F [id number] Accoun t: Access ion: Admit: StayTy pe: [id number] 2023 O [place] d: Order ID: Submit marci: Kris Bang er: 2023 07:36 [id number] LB LEXII DUEÑAS marci: Techno logist : Result ed: 2023 07:37 LB 2023 08:13 _ EXAMIN ATION: XR KNEE 1V OR 2V RT CLINIC AL HISTOR Y: REASON : BILATE RAL PRIMAR Y OSTEOA RTHRIT IS OF KNEE ADD'L INFO: NO ENTRY TECHNI QUE: AP and tunnel views RIGHT knee COMPAR CAITLYN: April 10, 2019 FINDIN GS: Severe joint space narrow ing demons trated medial ly with irregu larity joint surfac es and margin al osteop hytes. No acute osseou s findin g. IMPRES ROSA: Severe osteoa rthrit is in the right knee. Thank you for lettkaleb g us partic ipate in the care of this patien t. If you are a health care [facility] er and have any questi ons regard ing this report , please contac t the number below. For patien ts who have questi ons please contac t the health care profes sional that reques marci your imagin g first. Electr onical ly signed by: Anthony Encinas MD Radiol alexandra Schilling briseida ([phone]), at 2023 8:13 AM INTERFACE [facility] (Lab) [address] [place] [address], [address], 08/07/2024 08:20:31 Result Notes None recorded. Problems Name Problem SNOMED Code Status Onset Date Resolution Date Notes Provider Name and Address Organization Details Recorded Time Pain of bilatera l knee joints 44057713159 4104 Active 2023 ABELARDO MUÑOZ [address], [place], [address] , [facility] 4 10:56:49 Gastroes ophageal reflux disease without esophagi tis 228981608 Active 2014 [facility] 4 14:39:20 Obstruct merrill sleep apnea syndrome 09657803 Active 2014 [facility] 4 16:08:26 Narcolep sy without cataplex y 52815520653 104 Active 2014 [facility] 4 20:17:37 Vitamin D deficien cy 12654700 Active 2014 [facility] 4 20:06:59 Type 2 diabetes mellitus without complica tion 859467887 Active 2014 [facility] 4 20:01:00 Hypothyr oidism 64214895 Active 2014 [facility] 4 14:40:48 Irritabl e bowel syndrome 69662867 Active 2014 Chel Summersvert [facility] 4 14:41:48 Adult health examinat ion Completed 201501/25/2024 12/29/19 23 - Comments only - Jesika Alfred - KENNY on vaccinat ions & routine preventa tive screenin gs. Labs drawn today. Problem Code: Z00.00; Problem Code Type: ICD-10; Removal Reason: NA [facility] 4 14:05:16 Body mass index 40+ - severely obese 622390698 Active 2016 [facility] 4 14:06:34 Headache 12388555 Completed 201607/05/2017 Removal Reason: Per chart, migraine removed from problem list 07/05/17 Chel Amanda null, [facility] 4 15:51:48 Headache 32564749 Completed 201609/14/2017 Chel Amanda null, [facility] 4 15:51:48 Major depressi on, single episode 42722433 Completed 201701/25/2024 06/07/20 20 - Improved - Lupe Velasquez [employer] - No increase in depressi ve sxs. Working outside the house has benefitt ed her mood, in general. Problem Code: F32.9; Problem Code Type: ICD-10; Removal Reason: per chart, sx resolved , pt no longer taking anti-dep ressants Chel Amanda [facility], [facility] 4 15:58:14 Screenin g for malignan t neoplasm of breast Completed 201809/04/2019 09/04/20 19 - Comments only - Lupe Velasquez [employer] - Schedule screenin g mammogra m. Problem Code: Z12.39; Problem Code Type: ICD-10; Chel Amanda null, [facility] 4 16:11:07 Divertic ulitis of intestin e 451392191 Completed 201911/19/2019 11/11/19 20 - Improved - Lupe Velasquez [employer] - Acute sxs have resolved . Reportin g some remainin g mild tenderne ss. Encour ed to advance diet slowly toward high fiber diet. Problem Code: K57.92; Problem Code Type: ICD-10; ABELARDO MUÑOZ [address], [place], [address] , [facility] 4 11:03:54 Acute upper respirat ory infectio n 07155227 Completed 201911/25/2019 11/11/19 20 - Comments only - Lupe Velasquez [employer] - No s/s of bacteria l infectio n. Continue symptoma tic tx. Problem Code: J06.9; Problem Code Type: ICD-10; Not Available [facility] 3 04:53:30 Divertic ulitis of intestin e 572511373 Completed 201903/07/[address], [place], [address] , [facility] 4 11:03:54 Pain in thoracic spine 367673518 Active 2019 [facility] 4 20:10:42 Idiopath ic osteoart hritis 395197626 Active 2019 [facility] 4 20:33:12 Arthralg ia of the ankle and/or foot 058163424 Active 2019 Problem Code: M25.572; Problem Code Type: ICD-10; history of left sided ankle fracture in 2012, so has chronic arthriti s left from that AB[address]ARDO MU[address]Z Dr, [place], [address] , [facility] 3 14:50:34 Bradycar michael [id number] Completed 202003/07/[address], [place], [address] , [facility] 4 11:03:42 Cough [id number] Completed 202110/05/2022 10/02/20 22 - Comments only - Lupe Velasquez APRN - Negative rapid tests for flu and covid, assume URI. Continue supporti ve care. Problem Code: R05.8; Problem Code Type: ICD-10; Not Available [facility] 3 04:53:31 Disorder of soft tissue 64939144 Completed 202201/25/2024 Problem Code: M79.89; Problem Code Type: ICD-10; Removal Reason: correcte d problem w/dx listed Chel Amanda [facility] 4 14:37:53 Anxiety 24038912 Completed 201411/11/2019 Problem Code: F41.8; Problem Code Type: ICD-10; Not Available [facility] 3 04:53:31 Localize d edema 868320899 Completed 201609/04/2019 Problem Code: R60.0; Problem Code Type: ICD-10; Not Available [facility] 3 04:53:31 Gastroes ophageal reflux disease 075405490 Completed 201408/17/2015 Not Available [facility] 3 04:53:31 Abdomina l pain 46760484 Completed 201911/11/2019 Problem Code: R10.9; Problem Code Type: ICD-10; Not Available [facility] 3 04:53:31 Body mass index 30+ - obesity 167733207 Completed 201607/18/2023 09/04/20 19 - Comments only - Lupe Velasquez [employer] - Wt down 5 lbs in past 18 months. Has been more physical ly active and reduced carbs and sugars. [facility] ed to continue efforts. Problem Code: Z68.37; Problem Code Type: ICD-10; Not Available [facility] 3 04:53:31 Pain of joint of knee 0750809672 Completed 201705/25/2020 Problem Code: M25.569; Problem Code Type: ICD-10; Not Available [facility] 3 04:53:32 Generali zed anxiety disorder 08741771 Completed 201208/17/2015 Problem Code: 300.02; Problem Code Type: ICD-9; Not Available [facility] 3 04:53:32 Counseli ng Completed 201610/09/2017 Problem Code: Z71.89; Problem Code Type: ICD-10; Not Available [facility] 3 04:53:32 Migraine 80122821 Completed 201607/05/2017 Problem Code: G43.909; Problem Code Type: ICD-10; Not Available [facility] 3 04:53:32 Vitamin D deficien cy 67607767 Completed 201208/17/2015 Chel gorman [facility]. 4 20:06:59 Secondar y diabetes mellitus 9445337 Completed 201208/17/2015 Problem Code: 249.00; Problem Code Type: ICD-9; Not Available [facility] 3 04:53:33 Nicotine dependen ce 12114627 Completed 201610/09/2017 Problem Code: F17.200; Problem Code Type: ICD-10; Not Available [facility] 3 04:53:33 Sleep apnea 33466583 Completed 201108/17/2015 Not Available [facility] 3 04:53:33 Hypothyr oidism 78892848 Completed 201108/17/2015 Chel Amanda [facility] 4 14:40:48 Shoulder joint pain 843936122 Completed 201711/11/2019 Problem Code: M25.519; Problem Code Type: ICD-10; Not Available [facility] 3 04:53:33 Severe obesity 94312766041 104 Completed 201607/18/2023 04/01/20 18 - Improved - Lupe Velasquez [employer] - Consiste nt wt loss, [facility] ed to continue diet improvem ents, increase regular exercise . Problem Code: E66.01; Problem Code Type: ICD-10; Not Available [facility] 3 04:53:33 Narcolep sy 54481244 Completed 201108/17/2015 Not Available [facility] 3 04:53:34 Swelling of left lower limb 424001471 Active 2022 Chel gorman, [facility]. 4 14:22:00 History of divertic ulitis 65808370193 9100 Active 2023 ABELARDO MUÑOZ [address], [place], [address] , [facility]. 4 11:04:04 Palpitat ions 05390008 Active 2020 has done a heart monitor in past, no abnormal ities. was getting palpitat ions and also bradycar michael ABELARDO MUÑOZ [address], [place], [address] , [facility] 4 11:05:25 Pain in right lower limb 823113515 Active 2023 ABELARDO MUÑOZ [address], [place], [address] , [facility] 4 11:25:40 Problem Notes None recorded. Procedures Surgical History Date Name Laterality Status Provider Name and Address Organization Details Recorded Time 2 Most Recent Mammogram completed BOO ROWE RN [facility] 03/07/2024 10:08:53 6 Date of Last Colonoscopy completed BOO ROWE RN [facility] 03/07/2024 10:09:10 Imaging Results Imaging Date Name Status LastModified by Organiz ation Details LastModified Time 05/19/2024 XR, [email or web address] [address], [place], [address], 05/19/2024 13:15:58 05/19/2024 XR, knee, 3 view completed [email or web address] [place] [address] [address], [place], [address], 06/07/2024 15:47:40 08/26/2021 imaging/diagno stic result completed Information not available 07/06/2024 21:31:50 09/08/2021 imaging/diagno stic result completed Information not available 07/06/2024 21:32:18 10/29/2019 imaging/diagno stic result completed Information not available 07/06/2024 21:33:05 10/30/2019 CT, abdomen completed Information n ot available 07/06/2024 21:33:18 01/11/2022 MAMMO, screening completed Information not available 07/06/2024 21:33:20 08/07/2024 xr knee 1V or 2V lt* completed INTERFACE [facility] (Lab) [address] [place], [address], 08/07/2024 08:18:31 08/07/2024 xr knee 1V or 2V RT* completed INTERFACE [facility] ([facility]) [address] [place], [address], 08/07/2024 08:20:31 Procedure Notes None recorded. Medical Equipment None Reported. Allergies Allergen ID Allergen Name Allergen Category Reaction Reaction Severity Criticality Documentation Date Start Date Code Code System Note Provider Name and Address Organization Details Recorded Time 73639 house dust allergeni c extract environme nt,medica tion Not available Not available unabletoasse ss 08/31/20232013 26222 9 [facility], [facility] 4 13:38:33 32270 etodolac medicatio n other moderate high 01/25/20242011 04271 RxNorm per OV 01/30we aknes s, recta l bleed ing Tia Vasiliy [facility], [facility] 4 13:33:19 Medications Name Sig Start Date Stop Date Status Note LastModified by Organization Details LastModified Time Prescript ion - Renewal 07/11 completed Refill request Not Available Not Available Not Available amoxicill in 500 mg capsule TAKE 1 CAPSULE BY MOUTH TWICE DAILY FOR 10 DAYS 03/07 completed Not Available Not Available Not Available metformin 500 mg tablet TAKE 2 TABLETS BY MOUTH TWICE DAILY 01/22 completed pt reports it gave her diarrhea Not Available Not Available Not Available levothyro xine 175 mcg tablet TAKE 1 TABLET BY MOUTH IN THE MORNING ONCE DAILY AT LEAST 30 MINTUES PRIOR TO EATING 2023 active Not Available Not Available Not Avai lable cetirizin e 10 mg tablet take 1 tablet daily 09/04 completed Not Available Not Available Not Available echinacea 380 mg capsule takes for about 3 weeks at a time, then break for 3 weeks alternat ing active Not Available Not Available No t Available FreeStyle Lancets 28 gauge Use with glucomet er to check blood sugar twice Daily Dx: E11.9 2016 active Not Available Not Available Not Avai lable glipizide 10 mg tablet take 1 tablet PO twice daily for type 2 diabetes 2023 active Not Available Not Available Not Avai lable sertralin e 100 mg tablet Take 2 by mouth daily 09/04 completed Not Available Not Available Not Available [place] Vitamin C 1000 mg tablet 1 daily 02/13 completed Not Available Not Available Not Available Wellbutri n SR 150 mg tablet, 12 hr sustained -release 1 TAB twice daily 09/06 completed Not Available Not Available Not Available omeprazol e 40 mg capsule,d elayed release Take 1 tab by mouth daily twice daily as needed 09/04 completed general surgery Not Available Not Available Not Available amitripty line 50 mg tablet Take 2 tabs by mouth daily at bedtime 2015 active Not Available Not Available Not Avai lable levothyro xine 25 mcg tablet Take 1 tablet by mouth three times a week 09/10 completed Not Available Not Available Not Available amitripty line 25 mg tablet 1 tab daily 02/[address] Missy Rivera Not Available Not Available Not Available modafinil 200 mg tablet TAKE 1 TABLET BY MOUTH TWICE DAILY active filled by sleep medicine Not Available Not Available Not Available Imodium A-D 2 mg tablet Take 1 tab up to three times daily as needed for diarrhea . [address] Rivera Not Available Not Available Not Available Alise 180 mg tablet 1 TAB daily 05/01 completed Not Available Not Available Not Available Euthyrox 150 mcg tablet Take 1 tablet by mouth once daily 01/09 completed Not Available Not Available Not Available metformin 1,000 mg tablet Take 1 tablet twice a day Take 1 tablet by mouth twice daily 01/25 completed Not Available Not Available Not Available Vitamin C CR 1500 mg tablet,ex tended release Take 1 tablet every day by oral route. active Not Available Not Available No t Available indometha yuliya 50 mg capsule take 1 tablet TID with food. 09/07 completed Not Available Not Available Not Available Effexor 75 mg tablet 1 TAB twice daily 07/30 completed Not Available Not Available Not Available omeprazol e 20 mg capsule,d elayed release Take 1 capsule every day by oral route in the morning, for heartbur n/gerd. 2023 active Not Available Not Available Not Avai lable levothyro xine 200 mcg tablet TAKE 1 TABLET BY MOUTH ONCE DAILY 03/13 completed Not Available Not Available Not Available Vistaril 25 mg capsule take 1 tablet TID 09/07 completed Not Available Not Available Not Available Synthroid 112 mcg tablet 1TAB daily 10/31 completed Not Available Not Available Not Available levofloxa yuliya 500 mg tablet 1TAB daily 02/20 completed Not Available Not Available Not Available fluticaso ne propionat e 50 mcg/actua tion nasal spray,sung pension 2 spray into both nostrils once a day 03/07 completed Not Available Not Available Not Available amitripty line 100 mg tablet Take 1 tab by mouth at bedtime 09/04 completed Not Available Not Available Not Available loratadin e 10 mg tablet 1TAB daily 09/01 completed Not Available Not Available Not Available amoxicill in 875 mg-potass ium clavulana te 125 mg tablet Take 1 tab by mouth twice daily 01/28 completed Not Available Not Available Not Available modafinil 100 mg tablet 03/07 completed prescrib ed through Sleep Center Not Available Not Available Not Available azithromy yuliya 500 mg tablet 1TAB daily 09/08 completed Not Available Not Available Not Available Vitamin D3 25 mcg (1,000 unit) tablet 1CAP daily 09/01 completed Not Available Not Available Not Available Wellbutri n XL 150 mg 24 hr tablet, extended release Take 1 by mouth every other day. 05/20 completed Not Available Not Available Not Available vit B complex with B12 and C 1 daily 10/31 completed Not Available Not Available Not Available Cintia-Selt zer 1TAB 09/01 completed Not Available Not Available Not Available Adderall (10mg) 1 TAB twice daily 11/08 completed Not Available Not Available Not Available Vitamin D3 1TAB daily 08/29 completed Not Available Not Available Not Available multivita min active liquid multivit jesus with minerals Not Available Not Available Not Available Lexapro 11/11 completed Not Available Not Available Not Available Cymbalta 11/11 completed Not Available Not Available Not Available Vyvanse 70 mg capsule 1 daily 01/17 completed Not Available Not Available Not Available cholecalc iferol (vitamin D3) 1,250 mcg (50,000 unit) capsule TAKE 1 CAPSULE BY MOUTH ONCE A WEEK FOR 12 WEEKS, THEN TAKE 2000 UNITS VITAMIN D3 OVER THE COUNTER SUPPLEME NT DAILY AFTER THAT active Not Available Not Available No t Available ferrous gluconate 325 mg (36 mg iron) tablet 1TAB daily 09/01 completed Not Available Not Available Not Available omeprazol e 20 mg tablet,de layed release Take 1 by mouth twice a day 2014 active Not Available Not Available Not Avai lable Pen Needle 31 gauge x 3/16 Inject Daily 2017 active Not Available Not Available Not Avai lable Vitamin D3 50 mcg (2,000 unit) capsule 2 tab daily 2013 active Not Available Not Available Not Avai lable OneTouch Verio test strips Test Dialy. Dx: E11.9 2016 active Not Available Not Available Not Avai lable Victoza 2-Kevin 0.6 mg/0.1 mL (18 mg/3 mL) subcutane ous pen injector Inject 0.6 mg subcutan eously once a day for 1 week then increase to 1.2mg once a day x 1 week then increase to 1.8mg once per day 09/05 completed Not Available Not Available Not Available Vitals Date Recorded Body height Body mass index (BMI) Body weight Body temperature Respiratory rate Heart rate Systolic blood pressure Diastolic blood pressure Provider Name and Address Organization Details Last Updated DateTime 3 157.48 cm 40.9 kg/m2 091633. 54 g 98.4 [degF] 14 /min 80 /min 106 mm[Hg] 64 mm[Hg] BOO ROWE RN [facility], [facility]. 3 14:37:40 Date Recorded Body height Body mass index (BMI) Body weight Oxygen saturation Oxygen saturation in Arterial blood by Pulse oximetry Heart rate Body temperature Respiratory rate Systolic blood pressure Diastolic blood pressure Provider Name and Address Organization Details Last Updated DateTime 4 157.48 cm 40.2 kg/m2 78117.8 8 g 97 % 97 % 89 /min 97.7 [degF] 20 /min 122 mm[Hg] 85 mm[Hg] Melia Roach RN [facility], [facility] 4 17:40:32 Date Recorded Body height Body mass index (BMI) Body weight Body temperature Heart rate Respiratory rate Systolic blood pressure Diastolic blood pressure Provider Name and Address Organization Details Last Updated DateTime 4 157.48 cm 40 kg/m2 80949.2 9 g 98.2 [degF] 74 /min 16 /min 92 mm[Hg] 60 mm[Hg] BOO ROWE RN [facility], [facility] 4 10:52:44 Date Recorded Body height Oxygen saturation Oxygen saturation in Arterial blood by Pulse oximetry Heart rate Body mass index (BMI) Body weight Systolic blood pressure Diastolic blood pressure Provider Name and Address Organization Details Last Updated DateTime 4 157.48 cm 97 % 97 % 66 /min 40.2 kg/m2 19883.3 2 g 148 mm[Hg] 80 mm[Hg] JULIA Dawson MA [facility], [facility] 4 12:37:23 Date Recorded Body height Body mass index (BMI) Body weight Body temperature Oxygen saturation Oxygen saturation in Arterial blood by Pulse oximetry Heart rate Respiratory rate Systolic blood pressure Diastolic blood pressure Provider Name and Address Organization Details Last Updated DateTime 4 157.48 cm 40.9 kg/m2 990756. 9 g 97.7 [degF] 98 % 98 % 80 /min 20 /min 110 mm[Hg] 60 mm[Hg] [place] recinos [facility] 10:35:53 Social History Question Answer Notes LastModified by Organizat ion Details LastModified Time Tobacco Smoking Status Former Smoker Quit 2004 BOO ROWE RN null, [facility] 03/07/2024 10:10:33 What Is Your Level Of Alcohol Consumption? Occasional Information not available 09/07/2023 Do You Or Have You Ever Used E-cigarettes Or Vape? Former User Of Electronic Cigarettes Quit 2021 Information not available 03/07/2024 When Did You Quit Smoking? 6-10yearssince lastcigarette Information not available 09/07/2023 Would You Say That, In General, Your Health Is Fair Information not available 10/10/2024 Date Of Most Recent SBINS 10/10/2024 Information not available 10/10/2024 What Was The Date Of Your Most Recent Tobacco Screening? 10/10/2024 Information not available 10/10/2024 Do You Or Have You Ever Used Smokeless Tobacco? Never Used Smokeless Tobacco Information not available 03/07/2024 Do You Use Any Illicit Or Recreational Drugs? No Information not available 09/07/2023 Has Tobacco Cessation Counseling Been Provided? Yes Information not available 03/07/2024 On What Date Was Tobacco Cessation Counseling Provided? 10/10/2024 Information not available 10/10/2024 Do You Or Have You Ever Used Any Other Forms Of Tobacco Or Nicotine? Yes Information not available 03/07/2024 How Many Years Have You Used E-cigarettes Or Vape? 4 Information not available 03/07/2024 Sex: Female Functional Status None recorded. Mental Status None recorded. Family History Relationship Description Onset Age of this Age Resolved Age Notes LastModified by Organization Details LastModified Time Mother Family history of heart failure 70 Not available 2022 04:00:58 Mother Family history of diabetes mellitus type 1 john. Not available 2022 04:00:58 Notes:*Problem: Mother: Twila monge age 62 Father: Alive age 63 (not biological father) Sisters: 1, healthy Brothers: 2, healthy Children: 3 Family History of: Hypertension: MGM Hyperlipidemia: No Coronary heart disease: MGM Diabetes mellitus: MGM Breast cancer: No Mental illness: age related in MGM, MGGM Paternal family history unknown Medical History No medical history recorded. Gynecological History Statement/Question Response Date of Last Pap Smear Date of Last Colonoscopy 09/01/2016 Most Recent Mammogram 01/11/2022 Obstetrics History GPAL:G 0 P 0 0 0 0 Immunizations Vaccine Type Date Status Note Provider Nam e and Address Organization Details Recorded Time Tdap 3 completed ABELARDO MUÑOZ [address], [place], [address], [facility] 09/07/2023 22:01:11 Tdap 3 completed Not Available [facility] 08/31/2023 06:09:40 COVID-19, mRNA, LNP-S, PF, 100 mcg/0.5mL dose or 50 mcg/0.25mL dose 1 completed Not Available [facility] 08/31/2023 06:09:40 SARS-COV-2 (COVID-19) vaccine, UNSPECIFIED 1 completed Not Available [facility] 08/31/2023 06:09:40 pneumococcal polysaccharide PPV23 4 completed Not Available [facility] 08/31/2023 06:09:40 influenza, unspecified formulation 2 completed Not Available [facility] 08/31/2023 06:09:40 Past Encounters Encounter ID Performer Location Encounter Start Date Encounter Closed Date Diagnosis/Indication Diagnosis SNOMED-CT Code Diagnosis ICD10 Code [id number] ABELARDO MUÑOZ [facility] [address] [place] [address] 09/07/2023 14:22:15 09/07/2023 15:10:31 Type 2 diabetes mellitus without complication 115488711 E11.9 Hypothyroidism 90019799 E03.9 Administra tion of diphtheria, pertussis, and tetanus vaccine 992517235 Z23 Cramp of m uscle of left lower limb 9627572648 8232982 R25.2 [facility] 40188039 R00 .1 Narcolepsy without cataplexy 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 9104 G47.719 [id number] ORIANA MATTHEW PA-C [address] [address] 01/23/2024 17:29:15 01/23/2024 17:58:30 Pharyngitis 325289847 J02.9 Dental abscess 710081643 K04.7 [id number] ORIANA GARZA [facility] [address] [place] [address] 03/07/2024 10:31:25 03/07/2024 11:35:42 Vitamin D deficiency 38160527 E55.9 Type 2 michael betes mellitus without complication 296804086 E11.9 Hypothyroidism 98507768 E03.9 Narcolepsy without cataplexy 4717920026 9104 G47.419 Pain in ri ght lower limb 655946660 M79.936 [id number] DULCE PACHECO PA-C [address] [address] 05/17/2024 12:05:19 05/17/2024 13:35:46 Pain of bilateral knee joints 0759571748 57387 M25.561 M25.615 [id number] [facility] [address] [place] [address] 10/10/2024 10:21:12 10/10/2024 11:39:55 Type 2 diabetes mellitus without complication 209290282 E11.9 Vitamin D deficiency 347 26535 E55.9 Hypothyroidism 58100186 E03.9 Screening for malignant neoplasm of breast 961053255 Z12.39 Body mass index 40+ - severely obese 908129199 Z68.42 Narcolepsy without cataplexy 9279777863 9104 G47.419 Pain in ri ght lower limb 335327263 M79.604 Pain of bi lateral knee joints 9742287718 11191 M25.561 M25.562 Gastroesop hageal reflux disease without esophagitis 542496115 K21.9 Health Concerns Section Related Observation LastModified by Organization Detai ls LastModified Time None Recorded Concern Status LastModified by Organization Details LastModified Time None Recorded Advance Directives Directive None Recorded Payers Encounter Date Sequence Insurance Name Policy Number Policy Breaux Covered Member ID Breaux Member ID Guarantor Name 09/07/2023 1 [place] [employer] [facility] Jeannette Martinez [id number] Jeannette Martinez 01/23/2024 1 [place] [employer] [facility] Jeannette Matrinez [id number] Jeannette Martinez 03/07/2024 1 [place] [facility] Jeannette Martinez [id number] Jeannette Martinez 05/17/2024 1 [place] [facility] Jeannette Martinez [id number] 8 Jeannette Martinez Notes Date Note Type Note Provider Name and Address Organization Details Recorded Time 09/07/2023 text/html Generic HPI TemplateReported bypatient.Notes:Nimisha monge is a pleasant 58-year-old female here today to establish care with new PCP as her previous PCP has left the practice. She has a history of type 2 diabetes that seems to have declined in management over the past year. Patient reports is because she cannot tolerate her metformin. Says that gives her daily diarrhea up to 8 times a day when she takes it so a lot of the time she just does not take it. Says that mostly the problem is she lost her insurance that covers the Edgardo toes that she used to be on which really helped manage her blood sugars and she did not get side effects with it. Is hoping to get new insurance coverage within the next month. Most recently she was seen by a fill-in provider in March 2023 and her A1c was 11.0% at that time. They added glipizide 10 mg once daily to her metformin 1000 mg twice daily. Patient says she has been taking the glipizide but she has been very inconsistent with her metformin. Is hopeful that her sugars are somewhat lower but is not confident they will be. Says she does not really monitor her sugars closely. Last screening labs were October 2021 for cholesterol. Last metabolic plan I will in December 2022. Normal kidney function. She is managed for hypothyroidism on 225 mcg of levothyroxine. This was adjusted upwards after her TSH was elevated back in March. Her repeat TSH was done in April but she is due for another TSH at this point. Thinks she is pretty consistent about taking her medication for this. Reports she has been getting a lot of cramps in the muscles of her left leg also cramps in her foot. Says she does not drink a lot of water but also is worried her sugars are high. Has a history of bradycardia in her chart. Says that this was happening by way of her monitoring watch was telling her that she was having bradycardia at nighttime. she wore a 48-hour Holter monitor ordered through her last PCP and no abnormalities were found. Says that she does not feel dizzy or lightheaded when her watch tells her she is bradycardic. Her heart rate today in clinic is 80. 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 Is managed through the sleep center. He is on Provigil. ABELARDO MUÑOZ [address], [place], [address], [facility], [facility]. 09/07/2023 22:10:39 01/23/2024 text/html Patient is a 58-year-old female presenting for sore throat. Started with a sore throat Yesterday. Also notes some pain in her ears. Was around positive strep earlier this week. Denies any fevers or chills. No coughing wheezing or shortness of breath. Does also note she has had a dental abscess in the left upper gum for some time. Has tried [id number]-pjcxyxr remedies without relief. ORIANA MATTHEW PA-C [address], [place], [address], [facility], [facility]. 01/23/2024 18:01:57 03/07/2024 text/html Jeannette is a ple asant 59-year-old female here today for 6-month follow-up check-in as she had missed her 3-month follow-up check-in for chronic condition management.Type 2 diabetes uncontrolled:last labs with a1c at 9.3%- is currently on glipizide 10mg once daily at dinner time and average sugars are are about 150, upon wakening is about 120-130.Did forget to take it a bit. Has a hard time with consistency on her medications. last office visit we did labs and TSH was too low so we decreased her levothyroxine to 200mcg daily. cataplexy/narcolepsy: mostly narcolepsy though- no cataplexy in many years. still seeing sleep clinic and on modafinil taking 25mg about every 4 hours because can't tolerate higher dosing. sees the sleep clinic once per year. they told her they can't do any better with what they're doing. is still fatigued a lot. 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 Thinks she may have tweaked a nerve or hurt her back. Denies any loss of bowel or bladder control. ABELARDO MUÑOZ [address], [place], [address], [facility]. 04/21/2024 00:13:40 05/17/2024 text/html This is a [facility] 59-year-old female with history of bilateral knee pain and arthritis, states that she was traveling to [place] and on 2 separate occasions fell onto her knees, she is since that time she has had a flare of her bilateral knee pain. Hurts to walk, morning stiffness, left knee feels like it is giving way to some degree. No pain distally. No head injury or loss of consciousness. DULCE PACHECO PA-C [address], [place], [address], [facility]. 05/17/2024 14:29:38 OBGyn Episode No OBEpisode recorded.
--- OUTSIDE RECORDS SUMMARY | 2024-10-10 13:46 | XMS_ITS | Clinical Summary ---
Author Organization [facility] Address [address] [place] [address] Care Team Providers Care Health Services Manager Name Role Phone Miranda Delcid Primary Care Provider [phone] Social History Tobacco Use Types Packs/Day Years Used Date Smoking Tobacco: Never Assessed Comments Unknown Sex and Gender Information Value Date Recorded Sex Assigned at Not on file Legal Sex Female 18:06 EST Gender Identity Not on file Sexual Orientation Not on file Plan of Treatment Health Maintenance Due Date Last Done Comments Hepatitis C Screen 1965 Hepatitis B Vaccine (1 of 3 - 19+ 3-dose series) 03/03 COVID-19 Vaccine ( season) 2024 Care Teams Health Services Manager Relationship Specialty Start Date End Date Miranda Delcid PA [address] [place], [place] [id number] PCP - General 04/01/15
--- OUTSIDE RECORDS SUMMARY | 2024-10-10 13:46 | XMS_ITS | Encounter Summary ---
Author Organization [facility] Address [address] [place] [address] Care Team Providers Care Flight Physician Name Role Phone Unavailable Primary Care Provider Unavailabl e Encounter Details Date Type Department Care Team (Latest Contact Info) Description 03/29/2015 7:59 EDT - 03/29/2015 23:59 EDT Hospital Encounter [address] [address] Unknown, Provider, MD Discharge Disposition: Home or [...] Code Departure Means Destination Home or Self Detention documented in this encounter Plan of Treatment Not on file documented as of this encounter Visit Diagnoses Not on filedocumented in this encounter
--- OUTSIDE RECORDS SUMMARY | 2024-10-10 13:46 | XMS_ITS | Encounter Summary ---
Author Organization [facility] Address [address] [place] [address] Care Team Providers Care Lodging Manager Name Role Phone Miranda Delcid Primary Care Provider [phone] Encounter Details Date Type Department Care Team (Late st Contact Info) Description 10/28/2021 Lab Requisition [facility] Pathology & Laboratory Medicine - [facility] [address] [place], [place] [id number] Outr Resulting Lab, Provider Social History Tobacco Use Types Packs/Day Years [...] Procedure Name Priority Date/Time Associated Diagnosis Comments HIV 1/2 ANTIGEN AND ANTIBODY, 4TH GENERATION Routine 10/28/2021 11:42 EST documented in this encounter Results * HIV 1/2 ANTIGEN AND ANTIBODY, 4TH GENERATION (10/28/2021 11:42 EST) HIV 1 and 2 Antibody/p24 Antigen, 4th Generation Negative Negative 10/31/2021 10:17 EST [facility] Comment:If acute HIV-1 infec tion is suspected in a high risk patient, submit plasma specimen for HIV-1 RNA quantitation test. Blood VENOUS BLOOD / Unknown 10/28/2021 11:42 EST 10/28/2021 21:14 EST Narrative [facility] - 10/31/2021 10:17 EST Fourth Generation assay performed on the Siemens Centaur XPT. us Provider Outr Resulting Lab IMMUNOLOGY AND SEROL OGY ORDERABLES Final Result [facility] [address] [place] [address] documented in this encounter Visit Diagnoses Not on filedocumented in this encounter Care Teams Lodging Manager Relationship Specialty Start Date End Date Miranda Delcid PA [address] [place] [id number] PCP - General 04/01/15 documented as of this encounter
[2024-10-10 16:22] LABS: ALT 30 U/L (14-59); AST 20 U/L (15-37); Albumin 3.6 g/dL (3.4-5.0); Alkaline Phosphatase 123 U/L (46-116); Anion Gap 8.8 mmol/L (3-11); BUN 9 mg/dL (7-18); CO2 26.2 mmol/L (21.0-32.0); CREATININE 0.8 mg/dL (0.55-1.02); Calcium 9.2 mg/dL (8.5-10.1); Chloride 107 mmol/L (98-107); Estimated GFR 85.35 (mL/min/1.73m2); Glucose 204 mg/dL (74-106); Potassium 4.3 mmol/L (3.5-5.1); Sodium 142 mmol/L (136-145); Total Protein 7.1 g/dL (6.4-8.2); Vitamin D 25 Total 30.5 ng/mL (30-100)
[2024-10-10 16:43] LABS: FREE T4 1.41 ng/dL (0.76-1.46)
[2024-10-10 17:14] LABS: COMMENT (LAB VIEW ONLY) 50.28 mg/dL; Microalb ug/mg Crea 4.4 ug/mg Cr
== END 2024-10-10 13:41 | disposition home or self-care (01) ==
LOC: NCHCN 13:40
PROVIDERS: Visit Provider Nurse Practitioner Family
DX: E11.9 Type 2 diabetes mellitus without complications (principal); E55.9 Vitamin D deficiency, unspecified; E03.9 Hypothyroidism, unspecified
CPT/HCPCS: 80053; 82306; 82043; 82570; 84439; 84443

== ENCOUNTER 2024-12-26 14:47 | Outpatient (REF) | payer MEDICARE, SELFPAY ==
[2024-12-26 22:24] LABS: TSH 1.92 uIU/mL (0.36-3.74); Vitamin D 25 Total 31 ng/mL (30-100)
[2024-12-27 22:15] LABS: T4, Free 1.8 ng/dL (0.8-2.2)
== END 2024-12-26 14:48 | disposition home or self-care (01) ==
LOC: NCHCN 14:47
PROVIDERS: Visit Provider Nurse Practitioner Family
DX: E55.9 Vitamin D deficiency, unspecified (principal); E03.9 Hypothyroidism, unspecified
CPT/HCPCS: 82306; 84439; 84443

== ENCOUNTER 2025-06-12 11:49 | Outpatient (REF) | payer MEDICARE, SELFPAY ==
[2025-06-12 16:28] LABS: Calculated LDL 86 mg/dL (<100); Cholesterol 145 mg/dL (<200); HDL Cholesterol 52 mg/dL (>or=50); Triglyceride 36 mg/dL (<150)
[2025-06-12 16:40] LABS: COMMENT (LAB VIEW ONLY) 68.41 mg/dL; Microalb ug/mg Crea 6.7 ug/mg Cr
== END 2025-06-12 11:50 | disposition home or self-care (01) ==
LOC: NCHCN 11:49
PROVIDERS: Visit Provider Student in an Organized Health Care Education/Training Program
DX: E11.9 Type 2 diabetes mellitus without complications (principal)
CPT/HCPCS: 80061; 82043; 82570

== ENCOUNTER 2025-09-25 17:36 | Outpatient (CLI) | payer MEDICARE, SELFPAY ==
[2025-09-25 18:07] LABS: TSH (W/Ref FT4) 0.15 uIU/mL (0.55-4.78)
== END 2025-09-25 17:37 | disposition home or self-care (01) ==
LOC: NCHCN 17:38
PROVIDERS: Visit Provider Student in an Organized Health Care Education/Training Program
DX: E03.9 Hypothyroidism, unspecified (principal)
CPT/HCPCS: 84439; 84443